=== PATIENT | male | born 1995 | race Caucasian/White ===

== ENCOUNTER 2017-09-07 20:13 | Emergency (ER) | payer BC, OTHER ==
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
== END 2017-09-07 21:05 | disposition home or self-care (01) ==
LOC: MW.ED 20:13
DX: T26.40XA Burn of unspecified eye and adnexa, part unspecified, initial encounter (principal); W89.0XXA Exposure to welding light (arc), initial encounter; Y93.89 Activity, other specified
CPT/HCPCS: 99283